=== PATIENT | male | born 1965 | race Caucasian/White ===

== ENCOUNTER 2018-05-27 16:54 | Emergency (ER) | payer OTHER ==
[~2018-05-27] VITALS: Ht 182.9 cm; Wt 89.8 kg
[2018-05-27 17:38] VITALS: Ht 182.9 cm; Wt 89.8 kg
[2018-05-27 22:12] VITALS: BP 140/106
== END 2018-05-27 22:12 | disposition home or self-care (01) ==
LOC: ED 16:54
PROC: 3E0234Z Introduction of Serum, Toxoid and Vaccine into Muscle, Percutaneous Approach (ICD-10-PCS; principal; 2018-05-27)
PROC: BW28ZZZ Computerized Tomography (CT Scan) of Head (ICD-10-PCS; 2018-05-27)
DX: S06.0X0A Concussion without loss of consciousness, initial encounter (principal); S13.4XXA Sprain of ligaments of cervical spine, initial encounter; S00.81XA Abrasion of other part of head, initial encounter; S80.211A Abrasion, right knee, initial encounter; S40.211A Abrasion of right shoulder, initial encounter; V03.90XA Pedestrian on foot injured in collision with car, pick-up truck or van, unspecified whether traffic or nontraffic accident, initial encounter; Y92.414 Local residential or business street as the place of occurrence of the external cause
CPT/HCPCS: 90715

== ENCOUNTER 2020-08-03 12:18 | Emergency (ER) | payer MEDICAID ==
[~2020-08-03] VITALS: Ht 182.9 cm; Wt 93.4 kg
[2020-08-03 12:33] VITALS: Ht 182.9 cm; Wt 93.4 kg
[2020-08-03 13:43] VITALS: BP 152/78
== END 2020-08-03 13:43 | disposition home or self-care (01) ==
LOC: ED 12:18
DX: L25.9 Unspecified contact dermatitis, unspecified cause (principal)